=== PATIENT | male | born 1995 | race Caucasian/White ===

== ENCOUNTER 2016-12-01 21:17 | Emergency (ER) | payer OTHER ==
[~2016-12-01] VITALS: Ht 188 cm; Wt 68.2 kg
[~2016-12-01 21:17] MED LIST: DOXYCYCLINE 10100 MG PO; NORCO 325 MG-51 TAB PO
[2016-12-01 21:22] VITALS: BP 149/92; TEMP 98
[2016-12-01] MEDS ORDERED: CEPHALEXIN500 M1 PO (21:56)
[2016-12-01 22:11] VITALS: PULSE 96
== END 2016-12-01 22:12 | disposition home or self-care (01) ==
LOC: COL.ER 21:17
DX: S60.462A Insect bite (nonvenomous) of right middle finger, initial encounter (principal); W57.XXXA Bitten or stung by nonvenomous insect and other nonvenomous arthropods, initial encounter